=== PATIENT | male | born 1935 | race Caucasian/White ===

== ENCOUNTER 2016-10-30 10:29 | Day surgery (SDC) | payer MEDICARE, OTHER ==
--- NOTE | ~2016-10-30 | EGD ---
EGD REPORT [facility] [address] [place] [address] NAME: DON JOHNS : 33 [place] [facility] [place] [id number] AGE: 81 ADM/REG DATE : 10/30/16 MR#: [id number] REPORT SERV DATE: 10/30/16 DICTATED BY: CASANDRA PHILLIPS DATE: 10/30/16 REPORT STATUS : Draft TRANSCRIBED BY: [facility] DATE: 10/30/16 Endoscopy Center Patient Name: Don Johns Date of : 1935 Attending MD: CASANDRA PHILLIPS MD Procedure Date No Time: 10/30/2016 Procedure: Upper GI endoscopy Indications: Follow-up of Huntley's esophagus Referring MD: CLARA JARRETT, ANDREW MENDIETA JR., MD, LUDIVINA ESTRADA Medicines: Propofol per Anesthesia Complications: No immediate complications. Estimated blood loss: None. Procedure: Pre-Anesthesia Assessment: - After reviewing the risks and benefits, the patient was deemed in satisfactory condition to undergo the procedure. - Prior to the procedure, a History and Physical was performed, and patient medications and allergies were reviewed. The patient's tolerance of previous anesthesia was also reviewed. The risks and benefits of the procedure and the sedation options and risks were discussed with the patient. All questions were answered, and informed consent was obtained. Prior Anticoagulants: The patient has taken no previous anticoagulant or antiplatelet agents. ASA Grade Assessment: IV - A patient with severe systemic disease that is a constant threat to life. After reviewing the risks and benefits, the patient was deemed in satisfactory condition to undergo the procedure. After obtaining informed consent, the endoscope was passed under direct vision. Throughout the procedure, the patient's blood pressure, pulse, and oxygen saturations were monitored continuously. The GIF [id number] was introduced through the mouth, and advanced to the third part of duodenum. The upper GI endoscopy was accomplished without difficulty. The patient tolerated the procedure well. 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 The maximum longitudinal extent of these mucosal changes was 3 cm in length. Biopsies were taken with a cold forceps for histology. Estimated blood loss: none. A small hiatus hernia was present. EGD REPORT [address] [address] NAME: DON JOHNS : [birth year] [place] [facility] [place] [id number] AGE: 81 ADM/REG DATE : 10/30/16 MR#: [id number] REPORT SERV DATE: 10/30/16 DICTATED BY: CASANDRA PHILLIPS DATE: 10/30/16 REPORT STATUS : Draft TRANSCRIBED BY: [employer] DATE: 10/30/16 The examined duodenum was normal. Impression: - Esophageal mucosal changes secondary to established short-segment Huntley's disease. Biopsied. - Hiatus hernia. - Normal examined duodenum. - GERD. Recommendation: - Discharge patient to home (ambulatory). - Return to previous diet. - Continue present medications including Zegerid daily. - Await pathology results. - No further routine Huntley's surveillance due to age and comorbidities. - Return to GI clinic PRN. - Patient has a contact number available for emergencies. The signs and symptoms of potential delayed complications were discussed with the patient. Return to normal activities tomorrow. Written discharge instructions were provided to the patient. Procedure Code(s): --- Professional --- 88719, Esophagogastroduodenoscopy, flexible, transoral; with biopsy, single or multiple Diagnosis Code(s): --- Professional --- K22.70, Huntley's esophagus without dysplasia K44.9, Diaphragmatic hernia without obstruction or gangrene K21.9, Gastro-esophageal reflux disease without esophagitis CPT copyright 2013 [employer]. All rights reserved. The codes documented in this report are preliminary and upon erp project manager review may be revised to meet current compliance requirements. CASANDRA PHILLIPS MD 10/30/2016 1:07 PM This report has been signed electronically. Number of Addenda: 0 Note Initiated On: 10/30/2016 12:51 PM Scope Withdrawal Time 0 hours 0 minutes 0 seconds EGD REPORT [facility] [address] [address] NAME: DON JOHNS : 33 [place] [facility] [place]#: [id number] AGE: 81 ADM/REG DATE : 10/30/16 MR#: [id number] REPORT SERV DATE: 10/30/16 DICTATED BY: CASANDRA PHILLIPS. DATE: 10/30/16 REPORT STATUS : Draft TRANSCRIBED BY: [employer] DATE: 10/30/16 [address] [place] [id number]
[~2016-10-30 10:29] MED LIST: ALTA2.5 PO; ASA5GR PO; ASAB PO; CEFT5 PO; D.O.S.100 MG PO; DIL2TAB PO; FISH-EPA1000 MG PO; FLEX PO; GREEN FOODS COMPLEX PO; HALF81 PO; IRON325 MG PO; KLOR-CON M2020 MEQ PO; L40 PO; LOP25 PO; LOP50 PO; MAX25 PO; MUCINEX600 MG PO; MULTIPLE VIT PO; MULTIVIT/MIN PO; MULTIVITAMI1 PO; OMEGA 3550 MG PO; OMEGA PO; OTC EYE DROP OPH; OTC VITAMIN C PO; PLAVIX PO; PROAIR HFA INH; RYTHMOL SR225 MG PO; RYTHMOL SR325 MG PO; RYTHMOL150 MG PO; RYTHMOL225 MG PO; RYTHMOL300 MG PO; ULTIMATE EYE SUPPORT; ULTIMATE EYE SUPPORT PO; VANTIN200 MG PO; VEGETABLE LAXATIVE; VEIN SUPPORT; VITAMIN C100 MG PO; VITC500 PO; ZEGERID1 CAP PO; ZITHROMAX100 MG/5 M PO; ZOCOR20 PO; [UNRECOGNIZED DRUG - OTHER]; [UNRECOGNIZED DRUG - OTHER]; [UNRECOGNIZED DRUG - OTHER] PO; [UNRECOGNIZED DRUG - OTHER] PO; [UNRECOGNIZED DRUG - OTHER] PO; [UNRECOGNIZED DRUG - OTHER] PO
[2017-04-05] MEDS ORDERED: ANOROELLIPTA INH (16:36)
[2017-04-05] MEDS ORDERED: L20 PO (16:43)
[2017-04-05] MEDS ORDERED: XARELTO10 MG PO (16:45)
[2017-05-08] MEDS ORDERED: DEMA20 PO (13:33)
[2017-05-08] MEDS ORDERED: ZEGERID1 CAP PO (13:36)
[2017-05-08] MEDS ORDERED: VITAMIN D31000 UNIT PO (13:58)
== END 2016-10-30 23:59 | disposition home or self-care (01) ==
LOC: DMU 10:29
PROVIDERS: Internal Medicine Gastroenterology
PROC: 0DB38ZX Excision of Lower Esophagus, Via Natural or Artificial Opening Endoscopic, Diagnostic (ICD-10-PCS; principal; 2016-10-30 12:15)
DX: K22.70 Barrett's esophagus without dysplasia (principal); K44.9 Diaphragmatic hernia without obstruction or gangrene; I11.0 Hypertensive heart disease with heart failure; I50.9 Heart failure, unspecified; I48.91 Unspecified atrial fibrillation; I27.2 Other secondary pulmonary hypertension; K21.9 Gastro-esophageal reflux disease without esophagitis; I73.9 Peripheral vascular disease, unspecified; G47.33 Obstructive sleep apnea (adult) (pediatric); Z88.5 Allergy status to narcotic agent; Z79.82 Long term (current) use of aspirin; Z79.899 Other long term (current) drug therapy; Z88.8 Allergy status to other drugs, medicaments and biological substances; Z87.01 Personal history of pneumonia (recurrent); Z90.49 Acquired absence of other specified parts of digestive tract; Z96.1 Presence of intraocular lens; Z98.41 Cataract extraction status, right eye
CPT/HCPCS: 88305